=== PATIENT | female | born 1970 | race Caucasian/White ===

== ENCOUNTER → 2021-01-12 | Outpatient (CLI) | payer MEDICARE ==
[~2021-01-12] MED LIST: AMPHETAMINE SAL20 MG PO; LEVOTHYROXINE88 MCG PO; PRISTIQ ER50 MG PO; XARELTO15 PACK PO
== END ==
LOC: US 07:35 → CT 08:30
DX: C73 Malignant neoplasm of thyroid gland (principal); R06.02 Shortness of breath; I26.99 Other pulmonary embolism without acute cor pulmonale; E89.0 Postprocedural hypothyroidism
CPT/HCPCS: 93970; Q9967

== ENCOUNTER 2021-01-13 17:01 | Emergency (ER) | payer MEDICARE ==
[2021-01-13 18:23] LABS: HEMOGLOBIN 13.5 gm/dl (12.3-15.3); RED BLOOD COUNT 4.84 M/UL (4.00-5.10)
[2021-01-13 18:39] LABS: BUN/CREATININE RATIO 15 (0-10)
[2021-01-13] MEDS ORDERED: XARELTO15 PACK PO (19:34)
== END 2021-01-13 19:50 | disposition home or self-care (01) ==
LOC: ER1 17:01
PROVIDERS: Physician Assistant
DX: I26.99 Other pulmonary embolism without acute cor pulmonale (principal); Z90.49 Acquired absence of other specified parts of digestive tract; Z79.899 Other long term (current) drug therapy; Z88.0 Allergy status to penicillin; Z90.710 Acquired absence of both cervix and uterus
CPT/HCPCS: 80053; 82550; 82553; 83874; 84484; 85025; 85610; 93005; 96372; 99285; J1650

== ENCOUNTER 2021-01-17 15:56 | Observation (INO) | payer MEDICARE ==
[~2021-01-17] VITALS: Ht 142.2 cm; Wt 56.7 kg
[~2021-01-17 15:56] MED LIST changes: -AMPHETAMINE SAL20 MG PO; -LEVOTHYROXINE88 MCG PO; -PRISTIQ ER50 MG PO
[2021-01-17 16:37] LABS: HEMOGLOBIN 14.8 gm/dl (12.3-15.3); RED BLOOD COUNT 5.28 M/UL (4.00-5.10); WHITE BLOOD COUNT 8.7 K/UL (4.5-11.0)
[2021-01-17 17:08] LABS: BUN/CREATININE RATIO 16 (0-10)
[2021-01-17] MEDS ORDERED: LEVOTHYROXINE88 MCG PO (19:35)
[2021-01-17] MEDS ORDERED: AMPHETAMINE SAL20 MG PO (19:37)
[2021-01-17] MEDS ORDERED: PRISTIQ ER50 MG PO (19:39)
[2021-01-18 04:32] LABS: HEMOGLOBIN 13.5 gm/dl (12.3-15.3); RED BLOOD COUNT 4.87 M/UL (4.00-5.10)
[2021-01-18 04:33] LABS: WHITE BLOOD COUNT 6.5 K/UL (4.5-11.0)
[2021-01-18 04:49] LABS: BUN/CREATININE RATIO 17 (0-10)
== END 2021-01-18 11:50 | disposition home or self-care (01) ==
LOC: ER1 15:56 → CDU 18:04 → MED SURG 4 19:07
PROVIDERS: Emergency Medicine; ADMIT Internal Medicine
DX: R07.89 Other chest pain (principal); E03.9 Hypothyroidism, unspecified; Z86.711 Personal history of pulmonary embolism; Z79.01 Long term (current) use of anticoagulants; Z88.0 Allergy status to penicillin; Z20.822 Contact with and (suspected) exposure to COVID-19; Z85.850 Personal history of malignant neoplasm of thyroid
CPT/HCPCS: 36415; 80048; 80053; 82550; 82553; 83874; 83880; 84484; 85025; 85610; 85730; 93005; 96374; 99285; G0378; Q9967; U0002

== ENCOUNTER → 2021-06-25 | Outpatient (CLI) | payer MEDICARE ==
[~2021-06-25] MED LIST changes: +AMPHETAMINE SAL20 MG PO; +LEVOTHYROXINE88 MCG PO; +PRISTIQ ER50 MG PO
== END ==
LOC: KOH-I 12:23
DX: R93.89 Abnormal findings on diagnostic imaging of other specified body structures (principal); E89.0 Postprocedural hypothyroidism; C73 Malignant neoplasm of thyroid gland
CPT/HCPCS: 76536

== ENCOUNTER → 2021-11-30 | Outpatient (CLI) | payer MEDICARE ==
[2021-11-30 08:41] LABS: HEMOGLOBIN 13.5 gm/dl (12.3-15.3); RED BLOOD COUNT 4.85 M/UL (4.00-5.10); WHITE BLOOD COUNT 6.7 K/UL (4.5-11.0)
[2021-12-01 09:15] LABS: VITAMIN D, 25-HYDROXY 39.8 ng/mL (30.0-100.0)
[2021-12-01 10:15] LABS: A/G RATIO 1.8 (1.2-2.2); ALKALINE PHOSPHATASE, S 84 IU/L (44-121); ALT (SGPT) 25 IU/L (0-32); AST (SGOT) 29 IU/L (0-40); BILIRUBIN, TOTAL 0.3 mg/dL (0.0-1.2); BUN 19 mg/dL (6-24); BUN/CREATININE RATIO 20 (9-23); CALCIUM, SERUM 9.3 mg/dL (8.7-10.2); CARBON DIOXIDE, TOTAL 21 mmol/L (20-29); CHLORIDE, SERUM 103 mmol/L (96-106); CHOLESTEROL, TOTAL 302 mg/dL (100-199); CREATININE, SERUM 0.94 mg/dL (0.57-1.00); EGFR IF AFRICN AM 83 (>59); EGFR IF NONAFRICN AM 72 (>59); GLOBULIN, TOTAL 2.5 g/dL (1.5-4.5); GLUCOSE, SERUM 90 mg/dL (65-99); HDL CHOLESTEROL 70 mg/dL (>39); LDL CHOLESTEROL CALC 192 mg/dL (0-99); LDL/HDL RATIO 2.7 ratio (0.0-3.2); POTASSIUM, SERUM 4.5 mmol/L (3.5-5.2); SODIUM, SERUM 140 mmol/L (134-144); T. CHOL/HDL RATIO 4.3 ratio (0.0-4.4); TRIGLYCERIDES 212 mg/dL (0-149)
[2021-12-01 17:09] LABS: EBV AB VCA, IGG >600.0 U/mL (0.0-17.9); EBV AB VCA, IGM <36.0 U/mL (0.0-35.9); EBV NUCLEAR ANTIGEN AB, IGG >600.0 U/mL (0.0-17.9)
== END ==
LOC: LAB 11-29 17:44
PROVIDERS: Family Medicine
DX: E78.5 Hyperlipidemia, unspecified (principal); R53.83 Other fatigue; E03.9 Hypothyroidism, unspecified; R10.9 Unspecified abdominal pain; E55.9 Vitamin D deficiency, unspecified; D68.9 Coagulation defect, unspecified
CPT/HCPCS: 36415; 80053; 80061; 82150; 83690; 84439; 84443; 85025; 85379; 86403

== ENCOUNTER → 2021-12-03 | Outpatient (CLI) | payer MEDICARE | LOC: KOH-I 08:46 | DX: R10.11 Right upper quadrant pain (principal) | CPT/HCPCS: 76700 ==

== ENCOUNTER 2021-12-06 22:27 | Emergency (ER) | payer MEDICARE ==
[2021-12-07 00:23] LABS: HEMOGLOBIN 13.2 gm/dl (12.3-15.3); RED BLOOD COUNT 4.72 M/UL (4.00-5.10); WHITE BLOOD COUNT 7.9 K/UL (4.5-11.0)
[2021-12-07] MEDS ORDERED: PROTONIX40 MG PO (02:18)
[2021-12-07] MEDS ORDERED: ONDANSETRON ODT4 MG SL (02:18)
== END 2021-12-07 02:30 | disposition home or self-care (01) ==
LOC: ER1 22:27
PROVIDERS: Physician Assistant
DX: R10.31 Right lower quadrant pain (principal); R11.2 Nausea with vomiting, unspecified; K21.9 Gastro-esophageal reflux disease without esophagitis; Z88.0 Allergy status to penicillin; R10.13 Epigastric pain
CPT/HCPCS: 80053; 81001; 83690; 85025; 96374; 96375; 99284; C9113; J2270; J2405; Q9967

== ENCOUNTER → 2021-12-17 | Day surgery (SDC) | payer MEDICARE ==
[~2021-12-17] MED LIST changes: +ADDERALL 20 MG20 MG PO; +ONDANSETRON ODT4 MG SL; +PROTONIX40 MG PO
== END | disposition home or self-care (01) ==
LOC: OR 06:40
DX: D12.2 Benign neoplasm of ascending colon (principal); K29.70 Gastritis, unspecified, without bleeding; F90.1 Attention-deficit hyperactivity disorder, predominantly hyperactive type; G30.9 Alzheimer's disease, unspecified; F02.80 Dementia in other diseases classified elsewhere, unspecified severity, without behavioral disturbance, psychotic disturbance, mood disturbance, and anxiety; E78.1 Pure hyperglyceridemia; E03.9 Hypothyroidism, unspecified; G47.33 Obstructive sleep apnea (adult) (pediatric); M81.0 Age-related osteoporosis without current pathological fracture; Z88.0 Allergy status to penicillin; Z79.899 Other long term (current) drug therapy; Z20.822 Contact with and (suspected) exposure to COVID-19
CPT/HCPCS: J2704; J7030; J7040

== ENCOUNTER 2021-12-18 07:07 | Emergency (ER) | payer MEDICARE ==
[2021-12-18 08:50] LABS: HEMOGLOBIN 11.7 gm/dl (12.3-15.3); RED BLOOD COUNT 4.3 M/UL (4.00-5.10)
== END 2021-12-18 11:30 | disposition home or self-care (01) ==
LOC: ER1 07:07
PROVIDERS: Emergency Medicine
DX: K92.2 Gastrointestinal hemorrhage, unspecified (principal); E28.8 Other ovarian dysfunction
CPT/HCPCS: 80053; 85025; 96374; 99283; J2405; J7030

== ENCOUNTER → 2021-12-22 | Outpatient (CLI) | payer MEDICARE | LOC: KOH-I 12-14 09:30 → MRI 09:30 → KOH-I 09:30 → MRI 09:58 | DX: R93.2 Abnormal findings on diagnostic imaging of liver and biliary tract (principal); K76.9 Liver disease, unspecified; R10.31 Right lower quadrant pain | CPT/HCPCS: 74183; A9577 ==

== ENCOUNTER → 2022-01-07 | Outpatient (CLI) | payer MEDICARE | LOC: EXRD 09:30 | DX: M54.50 Low back pain, unspecified (principal); M50.321 Other cervical disc degeneration at C4-C5 level; G89.29 Other chronic pain; M51.36 Other intervertebral disc degeneration, lumbar region; M51.37 Other intervertebral disc degeneration, lumbosacral region; M43.17 Spondylolisthesis, lumbosacral region | CPT/HCPCS: 72040; 72100 ==

== ENCOUNTER → 2022-02-22 | Outpatient (CLI) | payer MEDICARE | LOC: HEART 5 08:31 | DX: R68.89 Other general symptoms and signs (principal); R07.9 Chest pain, unspecified; R42 Dizziness and giddiness; R06.02 Shortness of breath; I27.20 Pulmonary hypertension, unspecified; I08.1 Rheumatic disorders of both mitral and tricuspid valves | CPT/HCPCS: 78452; 93306; A9502; J2785 ==

== ENCOUNTER → 2022-02-24 | Outpatient (CLI) | payer MEDICARE ==
[2022-02-24 16:51] LABS: HEMOGLOBIN 11.1 gm/dl (12.3-15.3); RED BLOOD COUNT 4.32 M/UL (4.00-5.10); WHITE BLOOD COUNT 7.3 K/UL (4.5-11.0)
== END ==
LOC: LAB 15:26
PROVIDERS: Internal Medicine Interventional Cardiology
DX: Z01.812 Encounter for preprocedural laboratory examination (principal); R94.39 Abnormal result of other cardiovascular function study; F90.1 Attention-deficit hyperactivity disorder, predominantly hyperactive type; F41.9 Anxiety disorder, unspecified; R07.9 Chest pain, unspecified; F32.A Depression, unspecified; E78.5 Hyperlipidemia, unspecified; R56.9 Unspecified convulsions; Z51.81 Encounter for therapeutic drug level monitoring
CPT/HCPCS: 36415; 80048; 85025; 85610; 85730

== ENCOUNTER → 2022-03-01 | Outpatient (CLI) | payer MEDICARE ==
[~2022-03-01] MED LIST changes: +CARAFATE 1 GM TA1 GM PO; +COZAAR 25MG TAB25 MG PO; +CRESTOR20 MG PO; +CYANOCOBAL1000 MCG/1 INJ
== END ==
LOC: CATH 08:59
DX: I20.8 Other forms of angina pectoris (principal); R94.39 Abnormal result of other cardiovascular function study; R00.2 Palpitations; I10 Essential (primary) hypertension; E78.5 Hyperlipidemia, unspecified; D68.9 Coagulation defect, unspecified; E78.00 Pure hypercholesterolemia, unspecified; E78.1 Pure hyperglyceridemia; E03.9 Hypothyroidism, unspecified; K21.9 Gastro-esophageal reflux disease without esophagitis; M06.9 Rheumatoid arthritis, unspecified; Z88.0 Allergy status to penicillin; Z88.8 Allergy status to other drugs, medicaments and biological substances; Z82.49 Family history of ischemic heart disease and other diseases of the circulatory system; Z20.822 Contact with and (suspected) exposure to COVID-19
CPT/HCPCS: 99152; 99153; C1769; C1887; J1644; J2250; J2370; J3010; J7040; Q9965; Q9967